=== PATIENT | female | born 1975 | race Caucasian/White ===

== ENCOUNTER → 2016-06-20 | Outpatient (CLI) | payer OTHER | LOC: FIMAGING 15:16 | PROVIDERS: ATTEND Obstetrics & Gynecology | DX: O09.512 Supervision of elderly primigravida, second trimester (principal); Z3A.24 24 weeks gestation of pregnancy; O30.042 Twin pregnancy, dichorionic/diamniotic, second trimester ==

== ENCOUNTER 2016-08-17 09:20 | Inpatient (IN) | payer OTHER ==
[2016-08-17] MEDS ORDERED: LR 1,000 ML IV PRN (10:07)
[2016-08-17] MEDS ORDERED: BETAMETHASONE IM SYRINGE IM ONE (10:13)
[2016-08-17] MEDS ORDERED: NIFEdipine 10 MG CAP PO ONE ×2 (10:16→12:45)
[2016-08-17 11:22] LABS: % IMMATURE GRANULYOCYTES 0.5 % (0.0-1.1); ABSOLUTE IMMATURE GRANULOCYTES 0.03 10^3/uL (0.00-0.10); ADD DIFF? NO; ADD MORPH? NO; ADD SCAN? NO; ATYPICAL LYMPHOCYTE FLAG 10 (0-99); FRAGMENT RBC FLAG 0 (0-99); HEMATOCRIT 39.4 % (38.0-47.0); HEMOGLOBIN 14.4 g/dL (12.6-16.3); LEFT SHIFT FLG 0 (0-99); LIPEMIA HEMOLYSIS FLAG 90 (0-99); MEAN CELL HEMOGLOBIN 35.4 pg (27.9-34.1); MEAN CELL HEMOGLOBIN CONCENTR. 36.5 g/dL (32.4-36.7); MEAN CELL VOLUME 96.8 fL (81.5-99.8); MEAN PLATELET VOLUME 11.2 fL (8.7-11.7); PLATELET CLUMPS FLAG 0 (0-99); PLATELET COUNT 118 10^3/uL (150-400); RED BLOOD CELL COUNT 4.07 10^6/uL (4.18-5.33)
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
[2016-08-17 12:10] LABS: ALANINE AMINOTRANSFERASE 86 IU/L (9-52); ASPARTATE AMINOTRANSFERASE 43 IU/L (14-46); BILIRUBIN-CONJUGATED 0.3 mg/dL (0.0-0.5); BILIRUBIN-UNCONJUGATED 0.7 mg/dL (0.0-1.1); CREATININE 0.8 mg/dL (0.6-1.0); GLOMERULAR FILTRATION RATE > 60; LACTATE DEHYDROGENASE 526 IU/L (313-618); URIC ACID 4.6 mg/dL (2.5-6.8)
--- NOTE | 2016-08-17 14:21 | OBPROG ---
OBG Labor Progress Note Assessment/Plan: Assessment: 41 y/o @ 32 4/7 wks with Di-Di TIUP with ctx's and VB that has now resolved Plan: Pt continued to have ctx's after first dose of 20 mg of Procardia at 100, so another 20 mg was given at 1300 and now just uterine irritability noted Pelvic u/s done showing CL of 1.7cm with no funneling, previously was 2 cm Baby A is breech with EFW of 28% with MVP of 7.2cm Baby B is transverse with EFW 10% with MP of 4.7 cm GBS cx was collected and pending s/p BTMZ x 1 at 1100, repeat in 24 hrs Will cont to observe No Rhogam is needed at this time since FOC is Rh negative (O-) PIH labs: Plt low at 118; AST/ALT 43/86; LDH 526; Uric acid 4.6; BP most recently 128/69-will cont to observe 08/17/16 14:21 Subjective: Pt was feeling ctx's during u/s and now resolved. Good FM x 2. No further VB noted. Objective: 08/17/16 11:05 08/17/16 11:05 Patient ABO/Rh A NEGATIVE 08/17/16 11:05 Uric Acid 4.6 mg/dL (2.5-6.8) 08/17/16 11:05 Total Bilirubin 1.0 mg/dL (0.1-1.4) 08/17/16 11:05 Conjugated Bilirubin 0.3 mg/dL (0.0-0.5) 08/17/16 11:05 Unconjugated Bilirubin 0.7 mg/dL (0.0-1.1) 08/17/16 11:05 AST 43 IU/L (14-46) 08/17/16 11:05 ALT 86 IU/L (9-52) H 08/17/16 11:05 Lactate Dehydrogenase 526 IU/L (313-618) 08/17/16 11:05 Benavidez Current Contraction Pattern: Other (Specify) (uterine irritability) Oxytocin Orders Assessment - Pre-Induction/Augmentation Assessment Gestational Age: 32 week(s) and 4 day(s) ICD10 Worksheet Patient Problems: Problems Problem Status Onset contractions Acute Twin in third trimester Acute Vaginal bleeding in Acute - ICD10 Problem Qualifiers (1) Twin in third trimester Qualifiers: Multiple gestation type: dichorionic and diamniotic Qualified Code(s): O30.043 - Twin , dichorionic/diamniotic, third trimester (2) contractions (3) Vaginal bleeding in Qualifiers: Trimester: T
[2016-08-17] MEDS: NIFEdipine 10 MG CAP PO SCH ×2 (17:15→22:59)
[2016-08-17] MEDS: PRENATAL VIT 1 EACH TAB PO SCH (20:01)
[2016-08-18] MEDS: NIFEdipine 10 MG CAP PO SCH ×5 (05:07→22:57)
[2016-08-18] MEDS: LEVOTHYROXINE 50 MCG TAB PO SCH (05:07)
[2016-08-18 05:32] LABS: % IMMATURE GRANULYOCYTES 0.6 % (0.0-1.1); ABSOLUTE IMMATURE GRANULOCYTES 0.04 10^3/uL (0.00-0.10); ADD DIFF? NO; ADD MORPH? NO; ADD SCAN? NO; ATYPICAL LYMPHOCYTE FLAG 10 (0-99); FRAGMENT RBC FLAG 0 (0-99); HEMOGLOBIN 12.6 g/dL (12.6-16.3); LEFT SHIFT FLG 0 (0-99); LIPEMIA HEMOLYSIS FLAG 90 (0-99); MEAN CELL HEMOGLOBIN 35.6 pg (27.9-34.1); MEAN CELL VOLUME 98.9 fL (81.5-99.8); MEAN PLATELET VOLUME 10.8 fL (8.7-11.7); PLATELET CLUMPS FLAG 0 (0-99); PLATELET COUNT 119 10^3/uL (150-400); RED BLOOD CELL COUNT 3.54 10^6/uL (4.18-5.33); RED CELL DISTRIBUTION WIDTH 13.1 % (11.5-15.2)
[2016-08-18 05:44] LABS: ALANINE AMINOTRANSFERASE 83 IU/L (9-52); ASPARTATE AMINOTRANSFERASE 36 IU/L (14-46); CREATININE 0.7 mg/dL (0.6-1.0); GLOMERULAR FILTRATION RATE > 60; LACTATE DEHYDROGENASE 407 IU/L (313-618); URIC ACID 3.9 mg/dL (2.5-6.8)
[2016-08-18] MEDS ORDERED: NIFEdipine 10 MG CAP PO ONE (08:00)
--- NOTE | 2016-08-18 10:01 | OBPROG ---
OBG Labor Progress Note Assessment/Plan: Assessment: 41 y/o @ 32 5/7 weeks with di/di twins and PTL with EFW 10 % of twin B Plan: Will increase Procardia 20 mg Q 6 hours. Her second dose of BMZ is due at 11: 00 and her cervix is stable since tomorrow. She will see MFM @ 3 pm to assess EFW of baby B and our [facility] plan of care. 08/18/16 10:03 Subjective: Pt is feeling more contractions this am. Mild to moderate in intensity. She is having slightly more brownish discharge. No nausea, vomiting and she is having more movement today. Objective: 08/18/16 05:16 08/18/16 05:16 Patient ABO/Rh A NEGATIVE 08/17/16 11:05 Uric Acid 3.9 mg/dL (2.5-6.8) 08/18/16 05:16 Total Bilirubin 1.0 mg/dL (0.1-1.4) 08/17/16 11:05 Conjugated Bilirubin 0.3 mg/dL (0.0-0.5) 08/17/16 11:05 Unconjugated Bilirubin 0.7 mg/dL (0.0-1.1) 08/17/16 11:05 AST 36 IU/L (14-46) 08/18/16 05:16 ALT 83 IU/L (9-52) H 08/18/16 05:16 Lactate Dehydrogenase 407 IU/L (313-618) 08/18/16 05:16 - SVE Dilation (cm): 1 Effacement (%): 75 Station: -2 Twin A Current Contraction Pattern: Irregular (Q 4-8) FHR (bpm): 125 FHR Pattern Variability: Moderate FHR Category: 1 Membranes: Intact Twin B Current Contraction Pattern: Irregular FHR (bpm): 125 FHR Pattern Variability: Moderate FHR Category: 1 Oxytocin Orders Assessment - Pre-Induction/Augmentation Assessment Gestational Age: 32 week(s) and 4 day(s) ICD10 Worksheet Patient Problems: Problems Problem Status Onset contractions Acute Twin in third trimester Acute Vaginal bleeding in Acute
[2016-08-18] MEDS ORDERED: BETAMETHASONE IM SYRINGE IM ONE (10:12)
[2016-08-18] MEDS: IRON POLYSAC/IRON HEME 28 MG TAB PO SCH (11:12)
[2016-08-18] MEDS: PRENATAL VIT 1 EACH TAB PO SCH (22:57)
[2016-08-19] MEDS: NIFEdipine 10 MG CAP PO SCH ×3 (05:09→20:57)
[2016-08-19 05:35] LABS: ALANINE AMINOTRANSFERASE 89 IU/L (9-52); ASPARTATE AMINOTRANSFERASE 41 IU/L (14-46); BILIRUBIN,TOTAL 0.7 mg/dL (0.1-1.4); BILIRUBIN-CONJUGATED 0.2 mg/dL (0.0-0.5); BILIRUBIN-UNCONJUGATED 0.5 mg/dL (0.0-1.1); CREATININE 0.7 mg/dL (0.6-1.0); GLOMERULAR FILTRATION RATE > 60; LACTATE DEHYDROGENASE 404 IU/L (313-618); URIC ACID 3.9 mg/dL (2.5-6.8)
[2016-08-19 05:37] LABS: % IMMATURE GRANULYOCYTES 1.1 % (0.0-1.1); ABSOLUTE IMMATURE GRANULOCYTES 0.08 10^3/uL (0.00-0.10); ADD DIFF? NO; ADD MORPH? NO; ADD SCAN? NO; ATYPICAL LYMPHOCYTE FLAG 10 (0-99); FRAGMENT RBC FLAG 0 (0-99); HEMATOCRIT 34.1 % (38.0-47.0); HEMOGLOBIN 12.1 g/dL (12.6-16.3); LEFT SHIFT FLG 10 (0-99); LIPEMIA HEMOLYSIS FLAG 90 (0-99); MEAN CELL HEMOGLOBIN 35.3 pg (27.9-34.1); MEAN CELL HEMOGLOBIN CONCENTR. 35.5 g/dL (32.4-36.7); MEAN CELL VOLUME 99.4 fL (81.5-99.8); MEAN PLATELET VOLUME 10.8 fL (8.7-11.7); PLATELET CLUMPS FLAG 0 (0-99); PLATELET COUNT 111 10^3/uL (150-400); RED BLOOD CELL COUNT 3.43 10^6/uL (4.18-5.33); RED CELL DISTRIBUTION WIDTH 12.9 % (11.5-15.2)
[2016-08-19] MEDS: LEVOTHYROXINE 50 MCG TAB PO SCH (07:12)
[2016-08-19] MEDS: IRON POLYSAC/IRON HEME 28 MG TAB PO SCH (12:35)
[2016-08-19] MEDS ORDERED: CALCIUM CARBONATE 500 MG CHEWABLE TAB PO PRN (13:46)
[2016-08-19] MEDS ORDERED: RANITIDINE HCL 150 MG/10 ML UDCUP PO PRN (13:46)
--- NOTE | 2016-08-19 14:00 | OBPROG ---
OBG Labor Progress Note Assessment/Plan: Assessment: IUP at 32w6d ctxns now s/p BMZ x2 and on procardia past 48 hrs - last dose 11 am TWINS - baby B 10% EFW, positions br/tv last cx check /soft borderline B/P with normal labs and 24 hr urine 910 mg, ALT is elevated to 80s - stable GBS - Plan: NSTs q shift, will watch for stability, TUMS for heartburn, Mg for BM recheck growth u/s in 3 wks 08/19/16 14:00 Subjective: Pt doing ok. Anxious about unknown with ctxns. discussed plan of staying off meds and watching uterine activity. GFM x2. is aware of ctxns as tension in abdomen. no BM in 2 days. Objective: 08/19/16 05:15 08/19/16 05:15 Patient ABO/Rh A NEGATIVE 08/17/16 11:05 Uric Acid 3.9 mg/dL (2.5-6.8) 08/19/16 05:15 Total Bilirubin 0.7 mg/dL (0.1-1.4) 08/19/16 05:15 Conjugated Bilirubin 0.2 mg/dL (0.0-0.5) 08/19/16 05:15 Unconjugated Bilirubin 0.5 mg/dL (0.0-1.1) 08/19/16 05:15 AST 41 IU/L (14-46) 08/19/16 05:15 ALT 89 IU/L (9-52) H 08/19/16 05:15 Lactate Dehydrogenase 404 IU/L (313-618) 08/19/16 05:15 Group B Strep DNA NEGATIVE (NEGATIVE) 08/17/16 12:20 Twin A Current Contraction Pattern: Irregular (q 6-8 min mild - possible irritability) FHR (bpm): 130 FHR Pattern Variability: Moderate FHR Category: 1 Membranes: Intact Twin B FHR (bpm): 120 FHR Pattern Variability: Moderate FHR Category: 1 Membranes: Intact Oxytocin Orders Assessment - Pre-Induction/Augmentation Assessment Gestational Age: 32 week(s) and 4 day(s) ICD10 Worksheet Patient Problems: Problems Problem Status Onset contractions Acute Twin in third trimester Acute Vaginal bleeding in Acute
[2016-08-19] MEDS: Magnesium 500 MG PO SCH (21:08)
[2016-08-19] MEDS: PRENATAL VIT 1 EACH TAB PO SCH (21:08)
[2016-08-20] MEDS: Magnesium 500 MG PO SCH (07:17)
[2016-08-20] MEDS: LEVOTHYROXINE 50 MCG TAB PO SCH (07:17)
[2016-08-20] MEDS: NIFEdipine 10 MG CAP PO SCH ×2 (07:18→07:19)
--- NOTE | 2016-08-20 09:38 | OBPROG ---
OBG Labor Progress Note Assessment/Plan: Assessment:cat 1 nst reactive and reassuring denies leaking bleeding and regular contractions brownish discharge remains discussed going home today feeling comfortable Plan:discharge instructions discussed, modified bedrest, leaking bleeding, cramping movement discussed. Fu in the office on monday call first thing for an appt ok with POC 08/20/16 09:35 Subjective: Doing well. Denies bleeding, leaking, and regular contractions. States feeling positive movement of both babies. Objective: 08/19/16 05:15 08/19/16 05:15 Patient ABO/Rh A NEGATIVE 08/17/16 11:05 Uric Acid 3.9 mg/dL (2.5-6.8) 08/19/16 05:15 Total Bilirubin 0.7 mg/dL (0.1-1.4) 08/19/16 05:15 Conjugated Bilirubin 0.2 mg/dL (0.0-0.5) 08/19/16 05:15 Unconjugated Bilirubin 0.5 mg/dL (0.0-1.1) 08/19/16 05:15 AST 41 IU/L (14-46) 08/19/16 05:15 ALT 89 IU/L (9-52) H 08/19/16 05:15 Lactate Dehydrogenase 404 IU/L (313-618) 08/19/16 05:15 Group B Strep DNA NEGATIVE (NEGATIVE) 08/17/16 12:20 - Physical Exam General Appearance: WD/WN, alert, no apparent distress Respiratory: chest non-tender, lungs clear, normal breath sounds Cardiac/Chest: regular rate, rhythm Abdomen: normal bowel sounds Extremities: normal range of motion, Juliana's sign (negative bilaterally) DTR- Lower Extremities: Knee (R): 1+, Knee (L): 1+ (no clonus) Skin: normal color, warm/dry Neuro/Psych: no motor/sensory deficits, alert, normal mood/affect, oriented x 3 Oxytocin Orders Assessment - Pre-Induction/Augmentation Assessment Gestational Age: 32 week(s) and 4 day(s) ICD10 Worksheet Patient Problems: Problems Problem Status Onset contractions Acute Twin in third trimester Acute Vaginal bleeding in Acute
[2016-08-20] MEDS: IRON POLYSAC/IRON HEME 28 MG TAB PO SCH (10:19)
== END 2016-08-20 10:25 | disposition home or self-care (01) | DRG 778 ==
LOC: FLD 09:20 → OBSVTOIN 10:07
PROVIDERS: ADMIT Obstetrics & Gynecology; ATTEND Obstetrics & Gynecology
DX: O60.03 Preterm labor without delivery, third trimester (principal); Z3A.32 32 weeks gestation of pregnancy; O30.043 Twin pregnancy, dichorionic/diamniotic, third trimester; O99.283 Endocrine, nutritional and metabolic diseases complicating pregnancy, third trimester; E03.9 Hypothyroidism, unspecified; O99.013 Anemia complicating pregnancy, third trimester; D64.9 Anemia, unspecified
CPT/HCPCS: J0702

== ENCOUNTER 2016-08-22 14:52 | Inpatient (IN) | payer OTHER ==
[2016-08-22 16:01] LABS: % IMMATURE GRANULYOCYTES 0.5 % (0.0-1.1); ABSOLUTE IMMATURE GRANULOCYTES 0.04 10^3/uL (0.00-0.10); ADD DIFF? NO; ADD MORPH? NO; ADD SCAN? NO; ATYPICAL LYMPHOCYTE FLAG 10 (0-99); FRAGMENT RBC FLAG 0 (0-99); HEMATOCRIT 36.4 % (38.0-47.0); LEFT SHIFT FLG 0 (0-99); LIPEMIA HEMOLYSIS FLAG 90 (0-99); MEAN CELL HEMOGLOBIN CONCENTR. 35.7 g/dL (32.4-36.7); MEAN CELL VOLUME 98.1 fL (81.5-99.8); MEAN PLATELET VOLUME 11.2 fL (8.7-11.7); PLATELET CLUMPS FLAG 0 (0-99); PLATELET COUNT 136 10^3/uL (150-400); RED BLOOD CELL COUNT 3.71 10^6/uL (4.18-5.33)
[2016-08-22 16:14] LABS: ALANINE AMINOTRANSFERASE 142 IU/L (9-52); ASPARTATE AMINOTRANSFERASE 63 IU/L (14-46); BILIRUBIN,TOTAL 0.7 mg/dL (0.1-1.4); BILIRUBIN-CONJUGATED 0.3 mg/dL (0.0-0.5); BILIRUBIN-UNCONJUGATED 0.4 mg/dL (0.0-1.1); CREATININE 0.7 mg/dL (0.6-1.0); GLOMERULAR FILTRATION RATE > 60; LACTATE DEHYDROGENASE 539 IU/L (313-618)
[2016-08-22] MEDS ORDERED: LR 1,000 ML IV SCH (20:00)
--- NOTE | 2016-08-22 20:35 | GHP ---
[f rep st] PREOP HISTORY AND PHYSICAL DATE OF ADMISSION: 08/22/2016 ADMITTING DIAGNOSIS: Intrauterine at 33-2/7 weeks gestation with diamniotic dichorionic t win gestation and preeclampsia. HISTORY OF PRESENT ILLNESS: The patient is a 41-year-old 1, para 0 with a last menstrual pe riod of 01/04/2016 and an EDC of 10/08/2016, who has a diamniotic dichorionic twin gestation. She h as had good care at [facility], [place] since registration at 10 weeks. Her has been complicated by several factors. 1. Advanced maternal age greater than 40. She has had normal genetic testing and all ultrasounds h ave been normal for anatomy. 2. Diamniotic dichorionic twins with by IUI. Her most recent ultrasound on 08/17/2016 re vealed growth restriction in twin B. Baby A was breech presentation. Estimated weight 1913 g , which is 28th percentile. Had a normal amniotic fluid volume. Maximal fluid pocket of 7.2. Baby B was transverse lie, estimated weight 1729 g, 10th percentile, with a maximal fluid pocket o f 4.7 for baby B. They did have concordant growth, but baby B had decreased growth to the 10th perc entile. 3. Hypothyroidism. She has been well controlled on meds. 4. Rh negative, status post RhoGAM. Father of the babies is also Rh negative. She did not receive RhoGAM at 28 weeks. 5. History of migraines. 6. History of fibromyalgia. 7. History of a seizure disorder. She has petite mal seizures, most recently at 29 weeks' gestatio n. She says she has them approximately 1 time a month and they are brought on by extreme stress or visual or auditory disturbances. 8. She is anemic and on iron. She was admitted from 08/17/2016 to 08/19/2016 with the diagnosis of vaginal bleeding and la bor. She was assessed at that time, received a full course of betamethasone, and she was on Procard ia to control her contractions and give her a betamethasone window. When she completed this, Procar arturo was discontinued. Her contractions were stable. She had no more evidence of active bleeding or labor, and she was discharged home. During that admission, she had elevated blood pressure s. Initially on admission, her blood pressure was 149/87. After she was stabilized and was resting and on p.o. Procardia, her blood pressures normalized to 120s over 70s. She had labs done during [facility] admission several times with some areas of abnormalities. Initially, her platelets were 118. T hey drifted to 111. Creatinine was 0.8 and 0.7. Uric acid was 4.6 and 3.9. AST was 43 and ALT was elevated at 86. LDH was 526. She had 2 more sets drawn during that admission to make sure that th ings were stable. The most abnormality was the ALT progressed to 89. She had a 24-hour urine prote in that was collected during that admission and her total protein was abnormal at 910 mg. Due to he r elevated blood pressures, 24-hour urine and abnormal lab values, the patient was felt to have the diagnosis of preeclampsia. However, she did not have severe features. The patient was discharged h [facility] for outpatient management and careful monitoring. This morning on 08/22/2016, she presented to the office for evaluation, and she had another abnormal blood pressure of 150/83. She reports episo [place] of headaches this weekend which were transient in nature. Some she described as severe. She to ok Tylenol and rested, and they improved. She had episodes of scotomata which were waxing and wanin g, occasionally not severe. She does describe some episodes of right upper quadrant pain. However, it improves with position changes and she is not sure if it is related to the positioning. S he did have increased contractions over the weekend and still has some brown discharge but no active bleeding. PAST OBSTETRICAL HISTORY: None, she is a primipara. PAST GYNECOLOGIC HISTORY: She has normal menstrual cycles, regular, every 28 days x3-4 days. Last menstrual period was 01/04/2016. Conceived through intrauterine insemination. She has no history o f abnormal Pap smears or STDs. PAST MEDICAL HISTORY: Hypothyroidism, migraines with aura, fibromyalgia, depression, IBS, seizure d isorder, PNES, nonepileptic seizures. PAST SURGICAL HISTORY: She had a hymenectomy, a polypectomy in September 2015, and a history of endome trial polyps. She also had LASIK surgery. MEDICATIONS: Include vitamins with DHA and Synthroid 50 mcg q. day. ALLERGIES: She is allergic to Lyrica, unknown reaction. LABORATORIES: She is A negative, antibody negative. RPR nonreactive. Rubella immune. He patitis negative. HIV negative. Cystic fibrosis, SMA, fragile X negative. TSH 1.4 most recently. Pap normal. Gonorrhea and chlamydia normal. 1-hour GTT 109. Verifi was normal. AFP was normal. GBS was negative. SOCIAL HISTORY: She is . She lives with her . She is disabled and does not work per manently. Denies tobacco, alcohol or drug use. FAMILY HISTORY: Paternal grandmother has heart disease. Father had COPD. Paternal grandmother has diabetes. Father has psoriasis and alcoholism. That is all. REVIEW OF SYSTEMS: Significant for transient headaches, transient scotomata and abdominal epigastri c pain. She has contractions and some brown spotting. She has good movement. All other 10-p oint review of systems is negative. EXAMINATION: VITAL SIGNS: Today, her blood pressures have improved with rest, ranging 129/79, 139/ 79, 133/80. GENERAL: She is a well-developed, gravid white female in no acute distress. LUNGS: C lear to auscultation bilaterally. HEART: Regular rate and rhythm. No murmurs. ABDOMEN: Gravid, nontender. Negative Hudson sign. No edema. DTRs are 2+ over 2+. PELVIC: Cervical exam was defer red. LABORATORY DATA: Most recent labs: White blood cell count 7.5, hemoglobin 13, hematocrit 36.4, zohreh telets 136. BUN 10, creatinine 0.7, uric acid is 4. AST increased to 63, ALT increased to 142. LD H is 539. NSTs: heart tones: Baby A is 140s, reactive, moderate variability, category 1. B any B 130s, reactive, moderate variability, category 1. She is benitez irregularly. ASSESSMENT/PLAN: A 41-year-old 1, para 0 with diamniotic dichorionic twin gestation and pre eclampsia with severe features at 33-2/7 weeks' gestation. I had a phone consultation with Dr. Irena Faulkner, Maternal- Medicine, and reviewed the patient's clinical course, labs and vital signs, and we are in agreement that she has preeclampsia with sever e features. However, at 33-2/7 weeks' gestation, we want to see a trend before we proceed to delive ry. She recommended repeat labs at 10 p.m. tonight. If they are significantly worsened, proceed wi th delivery tonight, so she will be n.p.o. as of now. If they are stable, repeat labs again at 6 a. m. tomorrow. If they are abnormal, proceed with delivery tomorrow morning. If they remain stable, we will keep her as an inpatient with daily labs until delivery at the latest at 34 weeks, which is this coming Monday. If patient develops any more severe features or specific lab abnormalities, s pecific thrombocytopenia, we will proceed with delivery immediately. The patient has been counseled on delivery options, and because of the variable position of her twins as well as concerns for stre ss in labor, patient opts to have a and she desires this for delivery. /[id number]/MODL
[2016-08-22 22:20] LABS: % IMMATURE GRANULYOCYTES 0.5 % (0.0-1.1); ABSOLUTE IMMATURE GRANULOCYTES 0.04 10^3/uL (0.00-0.10); ADD DIFF? NO; ADD MORPH? NO; ADD SCAN? NO; ATYPICAL LYMPHOCYTE FLAG 30 (0-99); FRAGMENT RBC FLAG 0 (0-99); HEMATOCRIT 35.4 % (38.0-47.0); HEMOGLOBIN 13.1 g/dL (12.6-16.3); LEFT SHIFT FLG 10 (0-99); LIPEMIA HEMOLYSIS FLAG 90 (0-99); MEAN CELL VOLUME 97.3 fL (81.5-99.8); MEAN PLATELET VOLUME 11.1 fL (8.7-11.7); PLATELET CLUMPS FLAG 20 (0-99); PLATELET COUNT 132 10^3/uL (150-400); RED BLOOD CELL COUNT 3.64 10^6/uL (4.18-5.33)
[2016-08-22 22:44] LABS: ALANINE AMINOTRANSFERASE 147 IU/L (9-52); ASPARTATE AMINOTRANSFERASE 63 IU/L (14-46); CREATININE 0.7 mg/dL (0.6-1.0); GLOMERULAR FILTRATION RATE > 60; LACTATE DEHYDROGENASE 481 IU/L (313-618); URIC ACID 4.2 mg/dL (2.5-6.8)
[2016-08-22] MEDS ORDERED: ZOLPIDEM TARTRATE 5 MG TAB PO PRN (23:03)
--- NOTE | 2016-08-22 23:07 | OBPROG ---
OBG Labor Progress Note Assessment/Plan: Assessment:PLts 136 to 132 alt 142 to 147 npo after midnight repeat pih labs 0600 nst reactive denies pain ambien for sleep if desires dr casas and dr morales aware of results Plan:repeat pih labs in the am 08/22/16 23:05 Subjective: Doing ok verbalized understanding of the plan. Ok to have food and drink now NPO repeated after midnight Objective: 08/22/16 22:01 08/22/16 22:01 Patient ABO/Rh A NEGATIVE 08/22/16 19:20 Uric Acid 4.2 mg/dL (2.5-6.8) 08/22/16 22:01 Total Bilirubin 0.7 mg/dL (0.1-1.4) 08/22/16 15:46 Conjugated Bilirubin 0.3 mg/dL (0.0-0.5) 08/22/16 15:46 Unconjugated Bilirubin 0.4 mg/dL (0.0-1.1) 08/22/16 15:46 AST 63 IU/L (14-46) H 08/22/16 22:01 ALT 147 IU/L (9-52) H 08/22/16 22:01 Lactate Dehydrogenase 481 IU/L (313-618) 08/22/16 22:01 Oxytocin Orders Assessment - Pre-Induction/Augmentation Assessment Gestational Age: 33 week(s) and 2 day(s) ICD10 Worksheet Patient Problems: Problems Problem Status Onset Twin in third trimester Acute
--- NOTE | 2016-08-22 23:16 | OBPROG ---
OBG Labor Progress Note Assessment/Plan: Assessment: IUP @ 33 2/7 weeks - twins preeclampisa - stable labs status reassuring. Plan: patient may eat then npo repeat PIH labs at 6 am 08/22/16 23:11 Subjective: patient is doing well. good movement. denies headache and changes in vision. PIH labs are stable. long discussion with management plan with patient and her . will repeat labs at 6 am. Objective: 08/22/16 22:01 08/22/16 22:01 Patient ABO/Rh A NEGATIVE 08/22/16 19:20 Uric Acid 4.2 mg/dL (2.5-6.8) 08/22/16 22:01 Total Bilirubin 0.7 mg/dL (0.1-1.4) 08/22/16 15:46 Conjugated Bilirubin 0.3 mg/dL (0.0-0.5) 08/22/16 15:46 Unconjugated Bilirubin 0.4 mg/dL (0.0-1.1) 08/22/16 15:46 AST 63 IU/L (14-46) H 08/22/16 22:01 ALT 147 IU/L (9-52) H 08/22/16 22:01 Lactate Dehydrogenase 481 IU/L (313-618) 08/22/16 22:01 Oxytocin Orders Assessment - Pre-Induction/Augmentation Assessment Gestational Age: 33 week(s) and 2 day(s) ICD10 Worksheet Patient Problems: Problems Problem Status Onset Twin in third trimester Acute
[2016-08-23 05:55] LABS: % IMMATURE GRANULYOCYTES 0.4 % (0.0-1.1); ABSOLUTE IMMATURE GRANULOCYTES 0.03 10^3/uL (0.00-0.10); ADD DIFF? NO; ADD MORPH? NO; ADD SCAN? NO; ATYPICAL LYMPHOCYTE FLAG 10 (0-99); FRAGMENT RBC FLAG 0 (0-99); HEMATOCRIT 34.7 % (38.0-47.0); HEMOGLOBIN 12.4 g/dL (12.6-16.3); LEFT SHIFT FLG 0 (0-99); LIPEMIA HEMOLYSIS FLAG 90 (0-99); MEAN CELL HEMOGLOBIN CONCENTR. 35.7 g/dL (32.4-36.7); MEAN PLATELET VOLUME 11.2 fL (8.7-11.7); PLATELET CLUMPS FLAG 0 (0-99); PLATELET COUNT 123 10^3/uL (150-400); RED BLOOD CELL COUNT 3.54 10^6/uL (4.18-5.33); RED CELL DISTRIBUTION WIDTH 13.1 % (11.5-15.2)
[2016-08-23 06:10] LABS: ALANINE AMINOTRANSFERASE 134 IU/L (9-52); ASPARTATE AMINOTRANSFERASE 58 IU/L (14-46); CREATININE 0.7 mg/dL (0.6-1.0); GLOMERULAR FILTRATION RATE > 60; LACTATE DEHYDROGENASE 416 IU/L (313-618); URIC ACID 4.1 mg/dL (2.5-6.8)
--- NOTE | 2016-08-23 06:33 | OBPROG ---
OBG Labor Progress Note Assessment/Plan: Assessment:PLts 136 to 132 to 123 alt 142 to 147 to 134 ast 41to 64-58 regular diet this morning repeat pih labs qd nst reactive denies pain ambien for sleep if desires dr casas made aware of Plan:discussed labs with dr casas expectant management 08/22/16 23:05 08/23/16 06:31 Subjective: rested well through the night. Objective: 08/23/16 05:40 08/23/16 05:40 Patient ABO/Rh A NEGATIVE 08/22/16 19:20 Uric Acid 4.1 mg/dL (2.5-6.8) 08/23/16 05:40 Total Bilirubin 0.7 mg/dL (0.1-1.4) 08/22/16 15:46 Conjugated Bilirubin 0.3 mg/dL (0.0-0.5) 08/22/16 15:46 Unconjugated Bilirubin 0.4 mg/dL (0.0-1.1) 08/22/16 15:46 AST 58 IU/L (14-46) H 08/23/16 05:40 ALT 134 IU/L (9-52) H 08/23/16 05:40 Lactate Dehydrogenase 416 IU/L (313-618) 08/23/16 05:40 Oxytocin Orders Assessment - Pre-Induction/Augmentation Assessment Gestational Age: 33 week(s) and 2 day(s) ICD10 Worksheet Patient Problems: Problems Problem Status Onset Twin in third trimester Acute
--- NOTE | 2016-08-23 09:34 | OBPROG ---
OBG Labor Progress Note Assessment/Plan: Assessment: 41 y/o @ 33 3/7 weeks with di/di twins and pre-eclampsia with severe features. Plan: Discussed plan again with Dr Araujo today. She has the criteria for the diagnosis of pre-eclampsia with severe features, because of 2 elevated BP, proteinuria and elevated LFT's 2 x normal, as well as growth of twin B = 10 %. However, for now she is clinically stable. We discussed timing of delivery due to all of these factors and we agree that 34 weeks is reasonable. However, she should be monitored closely as an inpatient, with daily PIH labs, serial BP and NST's and if any of these factors worsen dramatically, we should proceed with immediately. She will come to see the patient later today. I explained this plan to the patient and her and answered all questions. 08/23/16 09:45 Subjective: Pt is feeling well this am. She is tired but overall rested overnight. She denies WHITTINGTON, scotomata or RUQ pain. She has had irregular contractions, occasionally strong. Good FM, no longer vaginal bleeding. Objective: 08/23/16 05:40 08/23/16 05:40 Patient ABO/Rh A NEGATIVE 08/22/16 19:20 Uric Acid 4.1 mg/dL (2.5-6.8) 08/23/16 05:40 Total Bilirubin 0.7 mg/dL (0.1-1.4) 08/22/16 15:46 Conjugated Bilirubin 0.3 mg/dL (0.0-0.5) 08/22/16 15:46 Unconjugated Bilirubin 0.4 mg/dL (0.0-1.1) 08/22/16 15:46 AST 58 IU/L (14-46) H 08/23/16 05:40 ALT 134 IU/L (9-52) H 08/23/16 05:40 Lactate Dehydrogenase 416 IU/L (313-618) 08/23/16 05:40 BP stable last night 123/81, 129/83, 129/78, - SVE Dilation (cm): 1 Effacement (%): 80 Twin A Current Contraction Pattern: Irregular FHR (bpm): 130 FHR Pattern Variability: Moderate FHR Category: 1 Membranes: Intact Twin B FHR (bpm): 120 FHR Pattern Variability: Moderate FHR Category: 1 - Physical Exam General Appearance: WD/WN, alert, no apparent distress Neck: non-tender, full range of motion, supple Respiratory: chest non-tender, lungs clear, normal breath sounds Cardiac/Chest: regular rate, rhythm Abdomen: normal bowel sounds, other (gravid, NT, neg Hudson's sign) Extremities: swelling (no), Juliana's sign (neg) DTR- Lower Extremities: Knee (R): 2+, Knee (L): 2+, Ankle (R): 2+, Ankle (L): 2 + (no clonus) Oxytocin Orders Assessment - Pre-Induction/Augmentation Assessment Gestational Age: 33 week(s) and 2 day(s) ICD10 Worksheet Patient Problems: Problems Problem Status Onset Twin in third trimester Acute
[2016-08-23] MEDS: DOCUSATE SODIUM 100 MG CAP PO SCH ×2 (17:18→21:36)
[2016-08-23] MEDS: PRENATAL VIT 1 EACH TAB PO SCH (22:01)
[2016-08-24 06:19] LABS: ALANINE AMINOTRANSFERASE 130 IU/L (9-52); ASPARTATE AMINOTRANSFERASE 51 IU/L (14-46); BILIRUBIN,TOTAL 0.6 mg/dL (0.1-1.4); BILIRUBIN-CONJUGATED 0.2 mg/dL (0.0-0.5); BILIRUBIN-UNCONJUGATED 0.4 mg/dL (0.0-1.1); CREATININE 0.7 mg/dL (0.6-1.0); GLOMERULAR FILTRATION RATE > 60; LACTATE DEHYDROGENASE 410 IU/L (313-618); URIC ACID 3.8 mg/dL (2.5-6.8)
[2016-08-24 06:50] LABS: % IMMATURE GRANULYOCYTES 0.6 % (0.0-1.1); ABSOLUTE IMMATURE GRANULOCYTES 0.04 10^3/uL (0.00-0.10); ADD DIFF? NO; ADD MORPH? NO; ADD SCAN? NO; ATYPICAL LYMPHOCYTE FLAG 0 (0-99); FRAGMENT RBC FLAG 0 (0-99); HEMATOCRIT 35.1 % (38.0-47.0); HEMOGLOBIN 12.5 g/dL (12.6-16.3); LEFT SHIFT FLG 0 (0-99); LIPEMIA HEMOLYSIS FLAG 90 (0-99); MEAN CELL HEMOGLOBIN 35.2 pg (27.9-34.1); MEAN CELL HEMOGLOBIN CONCENTR. 35.6 g/dL (32.4-36.7); MEAN CELL VOLUME 98.9 fL (81.5-99.8); MEAN PLATELET VOLUME 10.9 fL (8.7-11.7); PLATELET CLUMPS FLAG 10 (0-99); PLATELET COUNT 116 10^3/uL (150-400); RED BLOOD CELL COUNT 3.55 10^6/uL (4.18-5.33)
[2016-08-24] MEDS: LEVOTHYROXINE 50 MCG TAB PO SCH (07:13)
[2016-08-24] MEDS: MAGNESIUM 500 MG PO SCH ×2 (07:13→21:14)
[2016-08-24] MEDS: DOCUSATE SODIUM 100 MG CAP PO SCH ×2 (09:35→21:15)
[2016-08-24] MEDS: FERROUS SULFATE 325 MG TAB PO SCH (09:35)
--- NOTE | 2016-08-24 13:08 | OBPROG ---
OBG Labor Progress Note Assessment/Plan: Assessment: IUP at 33w4d, twins, preeclampsia stable with improving labs except slight trend down of plts B/P normal Reactive twin monitoring s/p BMZ x2 Plan: routine monitoring with q shift NSTs and daily labs plan for C/S Saturday 08/2608/24/16 13:05 Subjective: Doing fine. GFM x2. no ctxns bothersome. No WHITTINGTON or N/V or RUQ pain. No swelling increasing. disc stable labs and slight trend of platelets. Objective: 08/24/16 05:58 08/23/16 05:58 Patient ABO/Rh A NEGATIVE 08/22/16 19:20 Uric Acid 3.8 mg/dL (2.5-6.8) 08/23/16 05:58 Total Bilirubin 0.6 mg/dL (0.1-1.4) 08/23/16 05:58 Conjugated Bilirubin 0.2 mg/dL (0.0-0.5) 08/23/16 05:58 Unconjugated Bilirubin 0.4 mg/dL (0.0-1.1) 08/23/16 05:58 AST 51 IU/L (14-46) H 08/23/16 05:58 ALT 130 IU/L (9-52) H 08/23/16 05:58 Lactate Dehydrogenase 410 IU/L (313-618) 08/23/16 05:58 Twin A Current Contraction Pattern: Other (Specify) (infreq) FHR (bpm): 140 FHR Pattern Variability: Moderate FHR Category: 1 Membranes: Intact Twin B FHR (bpm): 130 FHR Pattern Variability: Moderate FHR Category: 1 Membranes: Intact Oxytocin Orders Assessment - Pre-Induction/Augmentation Assessment Gestational Age: 33 week(s) and 2 day(s) ICD10 Worksheet Patient Problems: Problems Problem Status Onset Twin in third trimester Acute
[2016-08-24] MEDS: PRENATAL VIT 1 EACH TAB PO SCH (21:15)
[2016-08-25] MEDS: LEVOTHYROXINE 50 MCG TAB PO SCH (06:22)
[2016-08-25] MEDS: MAGNESIUM 500 MG PO SCH ×2 (06:23→20:22)
[2016-08-25 07:20] LABS: ALANINE AMINOTRANSFERASE 143 IU/L (9-52); ASPARTATE AMINOTRANSFERASE 55 IU/L (14-46); CREATININE 0.7 mg/dL (0.6-1.0); GLOMERULAR FILTRATION RATE > 60; URIC ACID 3.8 mg/dL (2.5-6.8)
[2016-08-25 07:28] LABS: % IMMATURE GRANULYOCYTES 0.4 % (0.0-1.1); ABSOLUTE IMMATURE GRANULOCYTES 0.03 10^3/uL (0.00-0.10); ADD DIFF? NO; ADD MORPH? NO; ADD SCAN? NO; ATYPICAL LYMPHOCYTE FLAG 0 (0-99); FRAGMENT RBC FLAG 0 (0-99); HEMOGLOBIN 12.6 g/dL (12.6-16.3); LEFT SHIFT FLG 0 (0-99); LIPEMIA HEMOLYSIS FLAG 90 (0-99); MEAN CELL HEMOGLOBIN 35.4 pg (27.9-34.1); MEAN CELL VOLUME 98.3 fL (81.5-99.8); MEAN PLATELET VOLUME 11.2 fL (8.7-11.7); PLATELET CLUMPS FLAG 0 (0-99); PLATELET COUNT 118 10^3/uL (150-400); RED BLOOD CELL COUNT 3.56 10^6/uL (4.18-5.33)
[2016-08-25] MEDS: DOCUSATE SODIUM 100 MG CAP PO SCH ×2 (09:10→20:21)
[2016-08-25] MEDS: FERROUS SULFATE 325 MG TAB PO SCH (09:10)
[2016-08-25] MEDS: PRENATAL VIT 1 EACH TAB PO SCH (20:21)
--- NOTE | 2016-08-25 21:07 | OBPROG ---
OBG Labor Progress Note Assessment/Plan: Assessment: IUP @ 33 5/7 weeks - twins preeclampisa - stable labs status reassuring. Plan: PLTCS in am 08/25/16 21:04 Subjective: patient is doing well overall. good movement. denies headache and changes in vision. denies loss of fluid or changes in vision. denies contractions. labs and blood pressures are stable. will sign consent for surgery in the am. Objective: 08/25/16 06:38 08/25/16 06:38 Patient ABO/Rh A NEGATIVE 08/25/16 18:20 Uric Acid 3.8 mg/dL (2.5-6.8) 08/25/16 06:38 Total Bilirubin 0.6 mg/dL (0.1-1.4) 08/23/16 05:58 Conjugated Bilirubin 0.2 mg/dL (0.0-0.5) 08/23/16 05:58 Unconjugated Bilirubin 0.4 mg/dL (0.0-1.1) 08/23/16 05:58 AST 55 IU/L (14-46) H 08/25/16 06:38 ALT 143 IU/L (9-52) H 08/25/16 06:38 Lactate Dehydrogenase 410 IU/L (313-618) 08/23/16 05:58 - Physical Exam General Appearance: WD/WN, alert, no apparent distress Neck: non-tender, full range of motion Respiratory: chest non-tender, lungs clear, normal breath sounds Cardiac/Chest: normal peripheral pulses, regular rate, rhythm Abdomen: normal bowel sounds, other (gravid) Skin: normal color, warm/dry Neuro/Psych: no motor/sensory deficits, alert, normal mood/affect, oriented x 3 Oxytocin Orders Assessment - Pre-Induction/Augmentation Assessment Gestational Age: 33 week(s) and 2 day(s) ICD10 Worksheet Patient Problems: Problems Problem Status Onset Twin in third trimester Acute
[2016-08-26] MEDS ORDERED: OLIVE OIL 118 ML BTL ONE (02:09)
[2016-08-26] MEDS ORDERED: LIDOCAINE 1% 300 MG/30 ML SDV ONE (02:09)
[2016-08-26] MEDS ORDERED: OXYTOCIN 10 UNIT/ML VIAL ONE (02:10)
[2016-08-26] MEDS ORDERED: AMMONIA AROMATIC 1 EACH AMP IH ONE (02:10)
[2016-08-26] MEDS ORDERED: TERBUTALINE SULFATE 1 MG/ML VIAL ONE (02:10)
[2016-08-26] MEDS ORDERED: MISOPROSTOL 200 MCG TAB ONE (02:10)
[2016-08-26] MEDS ORDERED: CITRIC ACID/SODIUM CITRATE 30 ML UDCUP PO ONE (03:41)
[2016-08-26] MEDS ORDERED: ceFAZolin 2 GM/DEXTROSE 100 ML IV ONE ×2 (03:41→07:00)
[2016-08-26] MEDS ORDERED: LR 500 ML IV ONE (03:41)
[2016-08-26] MEDS ORDERED: LR 1,000 ML IV SCH (04:00)
[2016-08-26] MEDS: LEVOTHYROXINE 50 MCG TAB PO SCH (05:50)
--- NOTE | 2016-08-26 08:49 | PREANESOB ---
Obstetric Pre-Anesthesia Info - General Info Proposed Procedure: C Section. : 1 Para: 0 WBD: 33 - Info Status: Premature Monitors: External FHR Baseline (bpm): 150 FHR Pattern: Reassuring - Labor Status Cervical Dilation per last OB SVE: 1 Section History: Primary Indications for Current Section: Breech (Twins, baby A breech.) Anesthesia ROS: General anesthesia x 2. Hypothyroid. Allergies/Adverse Reactions: Allergy/AdvReac Type Severity Reaction Status Date / Time No Known Allergies Allergy Unverified 08/22/16 15:20 Home Medications: Medication Instructions Recorded IRON 65 mg PO DAILY 08/17/16 1 tab PO HS 08/17/16 Levothyroxine [Synthroid 50 mcg 50 mcg PO DAILY AT 6AM #0 tab 08/20/16 (*)] Visit Medications: Generic Name Dose Route Start Last Admin Trade Name Freq PRN Reason Stop Dose Admin Docusate Sodium 100 mg 08/23/16 09:00 08/25/16 20:21 Colace PO 02/19/17 08:59 100 mg BID GUSTAVO Administration Ferrous Sulfate 325 mg 08/24/16 09:00 08/25/16 09:10 Ferrous Sulfate PO 02/20/17 08:59 325 mg DAILY GUSTAVO Administration Lactated Ringer's 1,000 mls @ 125 mls/hr 08/22/16 20:00 08/26/16 06:01 Lr IV 02/18/17 19:59 1,000 mls CONT GUSTAVO Administration Lactated Ringer's 1,000 mls @ 125 mls/hr 08/26/16 04:00 Lr IV 02/22/17 03:59 CONT GUSTAVO Levothyroxine Sodium 50 mcg 08/24/16 06:00 08/26/16 05:50 Synthroid PO 02/20/17 05:59 50 mcg DAILY06 GUSTAVO Administration Miscellaneous Medication 0 ea 08/23/16 22:00 08/25/16 20:22 Non-Formulary PO 02/19/17 21:59 Not Given BID GUSTAVO Prenat Multivit/Costilla/Iron/Folic Ac 1 each 08/23/16 22:00 08/25/16 20:21 PO 02/19/17 21:59 1 each HS GUSTAVO Administration Zolpidem Tartrate 10 mg 08/22/16 23:03 Ambien PO 02/18/17 23:02 HS PRN Sleep/Insomnia Discontinued Medications Generic Name Dose Route Start Last Admin Trade Name Fernando PRN Reason Stop Dose Admin Ammonia (Aromatic Spirit) Confirm 08/26/16 02:10 Ammonia Aromatic Administered 08/26/16 02:11 Dose 1 each IH .STK-MED ONE Citric Acid/Sodium Citrate 30 ml 08/26/16 03:41 Bicitra PO 08/26/16 03:42 ONCALL ONE Ephedrine Sulfate Confirm 08/26/16 02:10 Ephedrine Sulfate Administered 08/26/16 02:11 Dose 50 mg .ROUTE .STK-MED ONE Cefazolin Sodium/Dextrose 100 mls @ 200 mls/hr 08/26/16 03:41 08/26/16 07:30 Ancef 2 Gm (Premix) IV 08/26/16 04:10 100 mls ONCALL ONE Administration Protocol Lactated Ringer's 500 mls @ 0 mls/hr 08/26/16 03:41 Lr IV 08/26/16 03:42 ONCE ONE As Directed Cefazolin Sodium/Dextrose 100 mls @ 200 mls/hr 08/26/16 07:00 Ancef 2 Gm (Premix) IV 08/26/16 07:29 ONCALL ONE Protocol Lidocaine HCl Confirm 08/26/16 02:09 Lidocaine Hcl 1% Administered 08/26/16 02:10 Dose 300 mg .ROUTE .STK-MED ONE Misoprostol Confirm 08/26/16 02:10 Cytotec Administered 08/26/16 02:11 Dose 1,000 mcg .ROUTE .STK-MED ONE [place] Oil Confirm 08/26/16 02:09 Sweet Oil Administered 08/26/16 02:10 Dose 118 ml .ROUTE .STK-MED ONE Oxytocin Confirm 08/26/16 02:10 Pitocin Administered 08/26/16 02:11 Dose 40 unit .ROUTE .STK-MED ONE Terbutaline Sulfate Confirm 08/26/16 02:10 Brethine Administered 08/26/16 02:11 Dose 1 mg .ROUTE .STK-MED ONE - Anesthesia History Response to Local Anesthetics: Normal Anesthesia & Operative History: No Prior Problems Family Anesthesia History: Negative - Social History Substance Use/Abuse: Denies - Focused Exam Blood Pressure: 127/82 Heart Rate: 83 Height/Weight (Nursing): Height 165.1 cm Weight 92.986 kg Physical Exam: Within normal limits. ASA Status: II Labs: 08/25/16 06:38 08/25/16 06:38 Patient ABO/Rh A NEGATIVE 08/25/16 18:20 Uric Acid 3.8 mg/dL (2.5-6.8) 08/25/16 06:38 Total Bilirubin 0.6 mg/dL (0.1-1.4) 08/23/16 05:58 Conjugated Bilirubin 0.2 mg/dL (0.0-0.5) 08/23/16 05:58 Unconjugated Bilirubin 0.4 mg/dL (0.0-1.1) 08/23/16 05:58 AST 55 IU/L (14-46) H 08/25/16 06:38 ALT 143 IU/L (9-52) H 08/25/16 06:38 Lactate Dehydrogenase 410 IU/L (313-618) 08/23/16 05:58 - Plan Anesthetic Plan: SAB Consent Signed and on Chart: Yes Patient/Guardian Understands and Agrees to Plan: Yes
[2016-08-26] MEDS ORDERED: morphINE PF 10 MG/10 ML INJ ONE (12:07)
[2016-08-26] MEDS ORDERED: fentaNYL 100 MCG/2 ML INJ ONE (12:07)
[2016-08-26] MEDS ORDERED: DEXAMETHASONE 4 MG/ML VIAL ONE ×2 (12:36→12:37)
[2016-08-26] MEDS ORDERED: OXYTOCIN 100 UNITS/10 ML VIAL ONE (12:37)
[2016-08-26] MEDS ORDERED: ONDANSETRON 4 MG/2 ML VIAL ONE ×2 (12:37)
[2016-08-26] MEDS ORDERED: PHENYLEPHRINE HCL 100 MCG/ML SYR ONE (12:37)
[2016-08-26] MEDS ORDERED: NALOXONE HCL 0.4 MG/ML INJ IVP PRN (13:29)
[2016-08-26] MEDS ORDERED: ONDANSETRON 4 MG/2 ML VIAL IVP PRN (13:29)
[2016-08-26] MEDS ORDERED: PHENYLEPHRINE HCL 100 MCG/ML SYR IVP PRN (13:29)
--- NOTE | 2016-08-26 13:29 | POSTANESTH ---
Post Anesthetic Evaluation Cardiovascular Status: Normal, Stable Respiratory Status: Normal, Stable, Similar to Pre-op Cond. Level of Consciousness/Mental Status: Can Participate in Eval, Alert and Oriented Pain Control: Adequate, Prn Tx Ordered Nausea/Vomiting Control: Adequate, Prn Tx Ordered Complications Possibly Related to Anesthesia: None Noted
[2016-08-26] MEDS ORDERED: KETOROLAC 30 MG/1 ML SDV ONE (13:49)
[2016-08-26] MEDS ORDERED: MAGNESIUM HYDROXIDE 30 ML UDCUP PO PRN (13:50)
[2016-08-26] MEDS ORDERED: POLYETHYLENE GLYCOL 3350 17 GM PKT PO PRN (13:50)
[2016-08-26] MEDS ORDERED: DOCUSATE SODIUM 100 MG CAP PO PRN (13:50)
[2016-08-26] MEDS ORDERED: LACTULOSE 20 GM/30 ML UDCUP PO PRN (13:50)
[2016-08-26] MEDS ORDERED: SIMETHICONE 80 MG TAB CHEW PO PRN (13:50)
[2016-08-26] MEDS ORDERED: PROMETHAZINE HCL 25 MG/ML INJ IVP PRN (13:50)
[2016-08-26] MEDS ORDERED: BISACODYL 10 MG SUPP PR PRN (13:50)
[2016-08-26] MEDS ORDERED: CALCIUM GLUC 10% 1 GM/10 ML VIAL IVP PRN (13:53)
[2016-08-26] MEDS ORDERED: Mag Sulf 500 ML IV SCH (14:00)
--- NOTE | 2016-08-26 14:07 | OBDEL ---
Info Type: Primary GBS+: No Indications for Delivery: Preeclampsia Severe, Multiple Gestation Di-Di Twins ( Malpresentation - Transverse, Transverse lie via bedside u/s) Operative Report - Delivery Pre-op Diagnoses: Severe preeclampsia; Di-Di TIUP with malpresentation Post-op Diagnoses: Severe preeclampsia; Di-Di TIUP with malpresentation Nulliparous Prior to Delivery: Yes Presentation at Delivery: Breech (Baby B - Transverse to cephalic) Procedure: Low Transverse Surgeon: Mallory Gordon Occupational Safety Specialist: Tennille Fuller Anesthesiologist: Curtis Sommers [employer] SUPERVISOR: Cecy Ferguson L&D Analgesia/Anesthesia Type: Spinal Complications: None Findings: Grossly normal appearing uterus, tubes and ovaries. Viable male infant weighing 2060 gm with 8 and 9 apgars; another viable male infant weighing 1241 gms with 8 and 9 apgars. Placentas intact each with 3-vc, sent to pathology. Specimen(s)/Path: Placenta IV Fluid (ml): 2,500 EBL: 800cc UO-300cc clear urine at the end of procedure Data Twin A Delivery Date: 08/26/16 Delivery Time: 12:40 MCKENZIE: 10/08/16 Gestational Age: 33 week(s) and 6 day(s) Sex of : Male (breech) Aubrey Weight (gm): 2060 g Score (1 Min): 8 Score (5 Min): 9 Twin B Delivery Date: 08/26/16 Delivery Time: 12:41 MCKENZIE: 10/08/16 Gestational Age: 33 week(s) and 6 day(s) Sex of : Male (Transverse to cephalic) Score (1 Min): 8 Score (5 Min): 9 ICD10 Worksheet Patient Problems: Problems Problem Status Onset delivery, delivered, current hospitalization Acute malpresentation Acute Pre-eclampsia Acute Twin in third trimester Acute - ICD10 Problem Qualifiers (1) Pre-eclampsia Qualifiers: Trimester: T (2) malpresentation Qualifiers: malpresentation type: F Fetus number: F (3) delivery, delivered, current hospitalization
[2016-08-26] MEDS: KETOROLAC 30 MG/1 ML SDV IVP SCH ×2 (14:20→20:59)
[2016-08-26] MEDS: MAGNESIUM 500 MG PO SCH ×3 (15:57→21:08)
[2016-08-26] MEDS: DOCUSATE SODIUM 100 MG CAP PO SCH ×2 (19:12→22:13)
[2016-08-26] MEDS: FERROUS SULFATE 325 MG TAB PO SCH (19:12)
[2016-08-26] MEDS: PRENATAL VIT 1 EACH TAB PO SCH (21:02)
[2016-08-26] MEDS: SENNOSIDES/DOCUSATE SODIUM TAB PO SCH (21:02)
[2016-08-26] MEDS: IRON POLYSAC/IRON HEME 28 MG TAB PO SCH (21:03)
[2016-08-27] MEDS: KETOROLAC 30 MG/1 ML SDV IVP SCH ×2 (03:23→09:31)
[2016-08-27 04:44] LABS: % IMMATURE GRANULYOCYTES 0.6 % (0.0-1.1); ABSOLUTE IMMATURE GRANULOCYTES 0.08 10^3/uL (0.00-0.10); ADD DIFF? NO; ADD MORPH? NO; ADD SCAN? NO; ATYPICAL LYMPHOCYTE FLAG 10 (0-99); FRAGMENT RBC FLAG 0 (0-99); HEMATOCRIT 38.1 % (38.0-47.0); HEMOGLOBIN 13.5 g/dL (12.6-16.3); LEFT SHIFT FLG 0 (0-99); LIPEMIA HEMOLYSIS FLAG 90 (0-99); MEAN CELL HEMOGLOBIN 35.2 pg (27.9-34.1); MEAN CELL HEMOGLOBIN CONCENTR. 35.4 g/dL (32.4-36.7); MEAN CELL VOLUME 99.5 fL (81.5-99.8); MEAN PLATELET VOLUME 11.1 fL (8.7-11.7); PLATELET CLUMPS FLAG 0 (0-99); PLATELET COUNT 137 10^3/uL (150-400); RED BLOOD CELL COUNT 3.83 10^6/uL (4.18-5.33); RED CELL DISTRIBUTION WIDTH 12.8 % (11.5-15.2)
[2016-08-27] MEDS: LEVOTHYROXINE 50 MCG TAB PO SCH (04:45)
[2016-08-27 05:01] LABS: ALANINE AMINOTRANSFERASE 217 IU/L (9-52); ASPARTATE AMINOTRANSFERASE 104 IU/L (14-46); CREATININE 0.8 mg/dL (0.6-1.0); GLOMERULAR FILTRATION RATE > 60; LACTATE DEHYDROGENASE 774 IU/L (313-618); URIC ACID 3.9 mg/dL (2.5-6.8)
--- NOTE | 2016-08-27 09:04 | GOP ---
[f rep st] OPERATIVE REPORT DATE OF OPERATION: 08/26/2016 SURGEON: Mallory Gordon DO LICENSED AND CERTIFIED MIDWIFE: Dr. Tennille Fuller. ANESTHESIA: Spinal. ANESTHESIOLOGIST: Dr. Mati Sommers. PREOPERATIVE DIAGNOSIS: 1. Intrauterine at 33 and 6/7 weeks. 2. Dichorionic diamniotic twin intrauterine , malpresentation. Transverse-transverse via bedside ultrasound. 3. Severe preeclampsia. POSTOPERATIVE DIAGNOSIS: 1. Intrauterine at 33 and 6/7 weeks. 2. Dichorionic diamniotic twin intrauterine , malpresentation. Transverse-transverse via bedside ultrasound. 3. Severe preeclampsia. PROCEDURE PERFORMED: Primary section. FINDINGS: Grossly normal-appearing uterus, tubes, and ovaries bilaterally were noted. Baby A is a male , viable in breech presentation. 's were 8 and 9. Weighing 2060 g. Baby B is a viable male infant, transverse moved to cephalic born with 8 and 9 Apgars, weighing 1762 g. Placenta intact x2 delivered spontaneously. Three-vessel cord sent to pathology. ESTIMATED BLOOD LOSS: 800 cc. INDICATIONS: The patient is a 41-year-old, 1, para 0, with di-di twin intrauterine at 33 and 6/7 weeks who developed severe preeclampsia. On admission, patient had mildly elevated blood pressure of 140/90's. PIH labs were done and mildly elevated LFTs were noted. A 24 hour urine protein was started that revealed 900 mg protein suggestive of severe preeclampsia. Liver enzymes continued to elevate to twice the normal range. Patient remained asymptomatic. The patient presented about a week and half ago with vaginal bleeding with suspected abruption at that time. Patient was given steroids, betamethasone x2. It was noted at that time on ultrasound, that Baby B was growth restricted at 10th percentile. Consultation was done by [facility] who recommended that we proceed with a primary for the severe preeclampsia at 33 6/7 weeks while she remained hospitalized. Discussed risks, benefits, alternatives with the patient including but not limited to, bleeding, infection, damage to surrounding organs. The patient understands all risks at this time and wants to proceed with surgery. Informed consents were obtained. DESCRIPTION OF PROCEDURE: Patient was taken to the operating room where spinal anesthesia was administered without difficulty. Patient was prepped and draped usual sterile fashion in dorsal supine position with leftward tilt. A Pfannenstiel skin incision was made with the scalpel and carried through the underlying layer of fascia using Bovie. Fascia was incised midline and extended laterally using Cox scissors. Lindy clamps were used to elevate the superior aspect of the fascial incision, elevated the underlying rectus muscle dissected off bluntly and using Cox scissors. Attention was then turned to inferior aspect of the fascial incision which in a similar fashion was grasped, Lindy clamps, elevated, underlying rectus muscles dissected off bluntly using the Bovie. Rectus muscles were then dissected in the midline. Peritoneum was identified, entered bluntly. Incision was extended superiorly and inferiorly with good visualization of bladder. Bladder blade was inserted. The vesicouterine peritoneum was identified, entered sharply using Metzenbaum scissors. Incision was then extended laterally and the bladder flap was created digitally. Bladder blade was reinserted. Lower uterine segment was incised in transverse fashion using scalpel and extended anteriorly and posteriorly with manual traction. Baby A amniotic sac was ruptured and clear fluid was noted. The infant was delivered in breech position. The cord was clamped x2 and cut, and the infant was handed off to the awaiting nursery nurse. At this time we felt for the position of baby B. Baby B was noted to be transverse, and was moved to cephalic presentation. Amniotic sac was ruptured , and again clear fluid was noted. Baby B was delivered in cephalic presentation. The cord was clamped x2 and cut, and baby handed to the awaiting nursery nurse. Cord blood was obtained x2. The placentas were then delivered intact spontaneously with a three-vessel cords and sent to pathology. The uterus was then exteriorized and cleared of all clots and debris. Uterine incision was repaired in 2 layers using 0 Vicryl. Hemostasis was visualized. The uterus was then returned to the abdomen. All gutters were cleaned and any blood or blood clots were removed. The uterine incision was reexamined, and noted to be hemostatic. The rectus muscles were then reapproximated in the midline using 3-0 Vicryl. The fascia was then closed with 0 Vicryl suture. Subcutaneous layer was closed with 3-0 Vicryl and hemostasis was noted. The skin was then closed with 4-0 Vicryl on a Roderick needle. Sponge, lap, and instrument counts were correct x2. The patient tolerated the procedure. No complications. The patient was stable at the completion the procedure, and was transferred to recovery room in stable condition. PATHOLOGY: Placentas. IV FLUIDS: 2500 cc LR. URINE OUTPUT: 300 cc of clear urine at the end procedure. COMPLICATIONS: None. /[id number]/MODL MTDD
[2016-08-27] MEDS: IRON POLYSAC/IRON HEME 28 MG TAB PO SCH ×2 (09:30→23:54)
[2016-08-27] MEDS: SENNOSIDES/DOCUSATE SODIUM TAB PO SCH ×2 (09:30→20:36)
[2016-08-27] MEDS: ENOXAPARIN 40 MG/0.4 ML SYR SC SCH (09:31)
[2016-08-27] MEDS: FERROUS SULFATE 325 MG TAB PO SCH (11:41)
[2016-08-27] MEDS: DOCUSATE SODIUM 100 MG CAP PO SCH ×2 (11:41→23:48)
[2016-08-27 12:55] LABS: % IMMATURE GRANULYOCYTES 0.4 % (0.0-1.1); ABSOLUTE IMMATURE GRANULOCYTES 0.04 10^3/uL (0.00-0.10); ADD DIFF? NO; ADD MORPH? NO; ADD SCAN? NO; ATYPICAL LYMPHOCYTE FLAG 0 (0-99); FRAGMENT RBC FLAG 0 (0-99); HEMATOCRIT 35.6 % (38.0-47.0); HEMOGLOBIN 12.9 g/dL (12.6-16.3); LEFT SHIFT FLG 0 (0-99); LIPEMIA HEMOLYSIS FLAG 90 (0-99); MEAN CELL HEMOGLOBIN 35.3 pg (27.9-34.1); MEAN CELL HEMOGLOBIN CONCENTR. 36.2 g/dL (32.4-36.7); MEAN CELL VOLUME 97.5 fL (81.5-99.8); MEAN PLATELET VOLUME 10.9 fL (8.7-11.7); PLATELET CLUMPS FLAG 0 (0-99); PLATELET COUNT 133 10^3/uL (150-400); RED BLOOD CELL COUNT 3.65 10^6/uL (4.18-5.33); RED CELL DISTRIBUTION WIDTH 12.9 % (11.5-15.2)
[2016-08-27 13:06] LABS: ALANINE AMINOTRANSFERASE 199 IU/L (9-52); ALBUMIN 3.2 g/dL (3.5-5.0); ALKALINE PHOSPHATASE 136 IU/L (38-126); ANION GAP 9 mEq/L (8-16); ASPARTATE AMINOTRANSFERASE 82 IU/L (14-46); BILIRUBIN,TOTAL 0.8 mg/dL (0.1-1.4); BILIRUBIN-CONJUGATED 0.3 mg/dL (0.0-0.5); BILIRUBIN-UNCONJUGATED 0.5 mg/dL (0.0-1.1); CARBON DIOXIDE 22 mEq/l (22-31); CHLORIDE 102 mEq/L (97-110); CREATININE 0.8 mg/dL (0.6-1.0); GLOMERULAR FILTRATION RATE > 60; GLUCOSE 113 mg/dL (70-100); LACTATE DEHYDROGENASE 728 IU/L (313-618); POTASSIUM 3.9 mEq/L (3.5-5.2); SODIUM 133 mEq/L (134-144); TOTAL PROTEIN 5.8 g/dL (6.3-8.2); URIC ACID 4.4 mg/dL (2.5-6.8)
--- NOTE | 2016-08-27 14:26 | OBPP ---
Progress Note Assessment/Plan: Assessment: 41 y/o POD #1 s/p LTCS secondary to severe pre-eclampsia and atypical HELLP @ 336/7 weeks. Plan: Second set of PIH labs are trending toward normal. Her BP are normal and she is asymptomatic. We will hold on MgSo4 for now, and continue to observe. Repeat set in am. Po pain meds, support. 08/23/16 09:45 08/27/16 14:26 Subjective: Pt is feeling well today. She has min incisional pain with getting up. She is ambulating, voiding without difficulty and has min lochia. She is working on breast feeding and pumping and babies are doing well in the NICU, stable on room air. Objective: 08/27/16 12:45 08/27/16 12:45 Patient ABO/Rh A NEGATIVE 08/25/16 18:20 Uric Acid 4.4 mg/dL (2.5-6.8) 08/27/16 12:45 Total Bilirubin 0.8 mg/dL (0.1-1.4) 08/27/16 12:45 Conjugated Bilirubin 0.3 mg/dL (0.0-0.5) 08/27/16 12:45 Unconjugated Bilirubin 0.5 mg/dL (0.0-1.1) 08/27/16 12:45 AST 82 IU/L (14-46) H 08/27/16 12:45 ALT 199 IU/L (9-52) H 08/27/16 12:45 Lactate Dehydrogenase 728 IU/L (313-618) H 08/27/16 12:45 Temp Pulse Resp BP Pulse Ox 36.4 C 59 L 16 95/62 L 99 08/27/16 09:00 08/27/16 09:00 08/27/16 09:00 08/27/16 09:00 08/27/16 09:00 Uterine Position/Fundal Height: Umbilicus -2 Uterine Tone: Firm Physical Exam - Physical Exam General Appearance: WD/WN, alert, no apparent distress Neck: non-tender, full range of motion, supple Respiratory: chest non-tender, lungs clear, normal breath sounds Cardiac/Chest: regular rate, rhythm Abdomen: normal bowel sounds, incision (c/d/i) Extremities: swelling (no), Juliana's sign (neg)
[2016-08-27] MEDS: IBUPROFEN 600 MG TAB PO PRN ×2 (15:38→21:29)
[2016-08-27] MEDS: HYDROCODONE/APAP 5/325 TAB PO PRN ×2 (17:02→21:30)
[2016-08-27] MEDS: MAGNESIUM 500 MG PO SCH ×2 (17:27→23:52)
[2016-08-28] MEDS: IBUPROFEN 600 MG TAB PO PRN ×4 (03:41→21:40)
[2016-08-28] MEDS: PRENATAL VIT 1 EACH TAB PO SCH ×2 (03:41→21:39)
[2016-08-28] MEDS: LEVOTHYROXINE 50 MCG TAB PO SCH (05:00)
[2016-08-28] MEDS: FERROUS SULFATE 325 MG TAB PO SCH (09:38)
[2016-08-28] MEDS: SENNOSIDES/DOCUSATE SODIUM TAB PO SCH ×2 (09:38→21:38)
[2016-08-28] MEDS: HYDROCODONE/APAP 5/325 TAB PO PRN ×4 (09:44→21:39)
[2016-08-28] MEDS: ENOXAPARIN 40 MG/0.4 ML SYR SC SCH (09:48)
[2016-08-28] MEDS: DOCUSATE SODIUM 100 MG CAP PO SCH ×2 (10:47→22:19)
[2016-08-28] MEDS: IRON POLYSAC/IRON HEME 28 MG TAB PO SCH (10:48)
[2016-08-28] MEDS: MAGNESIUM 500 MG PO SCH ×2 (10:49→22:19)
--- NOTE | 2016-08-28 12:17 | OBPP ---
Progress Note Assessment/Plan: Assessment: 1) s/p 1LTCS secondary to severe preeclampsia and twins, malpresentation POD # 2 - pt is stable 2) Anemia - pt is asymptomatic 3) s/p severe preeclampsia, elev LFTs - trending down; BPs normal; asymptomatic 4) HSV I, oral Plan: Continue routine pp care Encourage ambulation Acyclovir ordered and precautions given Recommend abd binder and K pad prn Plan for d/c in 48 hrs 08/28/16 12:18 Subjective: Pt seen and examined. Doing well, some soreness. But overall pain is well controlled. She is OOB, bin regular diet, voiding without difficulty and passing flatus. No BM yet. Denies any f/c/n/v/CP or SOB. No headaches, visual changes or RUQ pain. Moderate lochia. Pumping. Twin boys are in NICU doing well. Objective: 08/27/16 12:45 08/27/16 12:45 Patient ABO/Rh A NEGATIVE 08/25/16 18:20 Uric Acid 4.4 mg/dL (2.5-6.8) 08/27/16 12:45 Total Bilirubin 0.8 mg/dL (0.1-1.4) 08/27/16 12:45 Conjugated Bilirubin 0.3 mg/dL (0.0-0.5) 08/27/16 12:45 Unconjugated Bilirubin 0.5 mg/dL (0.0-1.1) 08/27/16 12:45 AST 82 IU/L (14-46) H 08/27/16 12:45 ALT 199 IU/L (9-52) H 08/27/16 12:45 Lactate Dehydrogenase 728 IU/L (313-618) H 08/27/16 12:45 Temp Pulse Resp BP Pulse Ox 36.3 C 67 18 126/79 H 99 08/28/16 09:00 08/28/16 09:00 08/28/16 09:00 08/28/16 09:00 08/28/16 09:00 Uterine Position/Fundal Height: Umbilicus -2 Uterine Tone: Firm Physical Exam - Physical Exam General Appearance: WD/WN, alert, no apparent distress Respiratory: lungs clear, normal breath sounds Cardiac/Chest: regular rate, rhythm Abdomen: normal bowel sounds, non-tender, soft, flatus (+), incision (C/D/I, well approximated; some erythema noted L side superior to incision likely from bandage) Extremities: non-tender, normal inspection DTR- Lower Extremities: Plantar (R): 1+, Plantar (L): 1+ Skin: warm/dry, cyanosis Neuro/Psych: alert, normal mood/affect, oriented x 3
[2016-08-28 14:22] LABS: BILIRUBIN,TOTAL 0.6 mg/dL (0.1-1.4); BILIRUBIN-CONJUGATED 0.2 mg/dL (0.0-0.5); BILIRUBIN-UNCONJUGATED 0.4 mg/dL (0.0-1.1); TOTAL PROTEIN 5.8 g/dL (6.3-8.2)
[2016-08-28] MEDS: ACYCLOVIR 200 MG CAP PO SCH ×2 (15:34→21:38)
[2016-08-29] MEDS: HYDROCODONE/APAP 5/325 TAB PO PRN ×6 (02:00→22:30)
[2016-08-29] MEDS: IBUPROFEN 600 MG TAB PO PRN ×3 (06:20→18:20)
[2016-08-29] MEDS: LEVOTHYROXINE 50 MCG TAB PO SCH (06:20)
[2016-08-29 07:04] LABS: ALBUMIN 2.7 g/dL (3.5-5.0); BILIRUBIN,TOTAL 0.6 mg/dL (0.1-1.4); BILIRUBIN-CONJUGATED 0.2 mg/dL (0.0-0.5); BILIRUBIN-UNCONJUGATED 0.4 mg/dL (0.0-1.1); TOTAL PROTEIN 5.3 g/dL (6.3-8.2)
[2016-08-29] MEDS: DOCUSATE SODIUM 100 MG CAP PO SCH ×2 (09:42→20:57)
[2016-08-29] MEDS: ACYCLOVIR 200 MG CAP PO SCH ×3 (09:42→22:31)
[2016-08-29] MEDS: ENOXAPARIN 40 MG/0.4 ML SYR SC SCH (09:43)
[2016-08-29] MEDS: FERROUS SULFATE 325 MG TAB PO SCH (09:43)
[2016-08-29] MEDS: SENNOSIDES/DOCUSATE SODIUM TAB PO SCH ×2 (09:44→20:56)
[2016-08-29] MEDS: MAGNESIUM 500 MG PO SCH ×2 (09:44→21:40)
--- NOTE | 2016-08-29 19:39 | OBPP ---
Progress Note Assessment/Plan: Doing well today pumping pain well managed ff@u scant rubra lochia swelling in lower extremities 2+ bilaterally regular diet denies pih symptoms anemic incision well approximated vs wnl Plan:discharge to [facility] tomorrow discussed somewhat 08/22/16 23:05 08/23/16 06:31 08/29/16 19:40 08/29/16 19:48 Subjective: Doing well denies difficulties. Objective: 08/27/16 12:45 08/27/16 12:45 Patient ABO/Rh A NEGATIVE 08/25/16 18:20 Uric Acid 4.4 mg/dL (2.5-6.8) 08/27/16 12:45 Total Bilirubin 0.6 mg/dL (0.1-1.4) 08/29/16 06:30 Conjugated Bilirubin 0.2 mg/dL (0.0-0.5) 08/29/16 06:30 Unconjugated Bilirubin 0.4 mg/dL (0.0-1.1) 08/29/16 06:30 AST 52 IU/L (14-46) H 08/29/16 06:30 ALT 128 IU/L (9-52) H 08/29/16 06:30 Lactate Dehydrogenase 728 IU/L (313-618) H 08/27/16 12:45 Temp Pulse Resp BP Pulse Ox 36.9 C 62 18 122/66 H 98 08/29/16 09:37 08/29/16 09:37 08/29/16 09:37 08/29/16 09:37 08/29/16 09:37 Uterine Position/Fundal Height: At Umbilicus Physical Exam - Physical Exam General Appearance: WD/WN, alert, no apparent distress Respiratory: chest non-tender, lungs clear, normal breath sounds Cardiac/Chest: regular rate, rhythm Abdomen: normal bowel sounds Extremities: normal range of motion, non-tender, normal inspection, swelling, Juliana's sign (negative bilaterally) Peripheral Pulses: 1+: carotid (R), carotid (L) (no clonus) Skin: normal color, warm/dry Neuro/Psych: no motor/sensory deficits, alert, normal mood/affect, oriented x 3
[2016-08-29] MEDS: PRENATAL VIT 1 EACH TAB PO SCH (20:56)
[2016-08-30] MEDS: IBUPROFEN 600 MG TAB PO PRN ×3 (00:39→12:32)
[2016-08-30] MEDS: HYDROCODONE/APAP 5/325 TAB PO PRN ×4 (02:33→15:57)
[2016-08-30] MEDS: LEVOTHYROXINE 50 MCG TAB PO SCH (04:50)
[2016-08-30] MEDS: ENOXAPARIN 40 MG/0.4 ML SYR SC SCH (10:11)
[2016-08-30] MEDS: ACYCLOVIR 200 MG CAP PO SCH (10:11)
[2016-08-30] MEDS: FERROUS SULFATE 325 MG TAB PO SCH (10:11)
--- NOTE | 2016-08-30 12:42 | OBPP ---
Progress Note Assessment/Plan: Assessment: POD 4 s/p primary C/S for severe preeclampsia, twins improved LFTs, mild anemia Plan: D/C to boarder status, cont Independence prn and ibu. RTC for B/P check later this week 08/24/16 13:05 08/30/16 12:38 Subjective: Pt doing well. No WHITTINGTON or n/v or visual changes. producing colostrum. pain is well controlled with 1 Independence q 4 hrs and ibu. Had BM yesterday and is urinating fine. Babies doing well on RA. Disc boarder status. Objective: 08/27/16 12:45 08/27/16 12:45 Patient ABO/Rh A NEGATIVE 08/25/16 18:20 Uric Acid 4.4 mg/dL (2.5-6.8) 08/27/16 12:45 Total Bilirubin 0.6 mg/dL (0.1-1.4) 08/29/16 06:30 Conjugated Bilirubin 0.2 mg/dL (0.0-0.5) 08/29/16 06:30 Unconjugated Bilirubin 0.4 mg/dL (0.0-1.1) 08/29/16 06:30 AST 52 IU/L (14-46) H 08/29/16 06:30 ALT 128 IU/L (9-52) H 08/29/16 06:30 Lactate Dehydrogenase 728 IU/L (313-618) H 08/27/16 12:45 Temp Pulse Resp BP Pulse Ox 36.7 C 75 16 132/82 H 96 08/29/16 20:00 08/29/16 20:00 08/29/16 20:00 08/29/16 20:00 08/29/16 20:00 Uterine Position/Fundal Height: Umbilicus -1 Uterine Tone: Firm Physical Exam - Physical Exam General Appearance: WD/WN, alert, no apparent distress Abdomen: non-tender, soft, other (FF at umb -1, lochia scant, incision CDI) Extremities: non-tender, pedal edema (3+) Skin: normal color, warm/dry Neuro/Psych: alert, normal mood/affect
--- NOTE | 2016-08-30 12:52 | OBGCSDC ---
General Delivery Information - General Info : 1 Para: 1 Delivery Physician/CNM: Mallory Gordon Blanket Folder: Tennille Fuller Labs: Patient ABO/Rh A NEGATIVE 08/25/16 18:20 Hct 35.6 % (38.0-47.0) L 08/27/16 12:45 Vaginal - Diagnosis Presentation at Delivery: Breech (Baby B - Transverse to cephalic) - Operations/Procedures L&D Analgesia/Anesthesia Type: Spinal - Delivery Number of Prior Sections: 0 Indications for Current Section: Other (Specify) (twins, , severe preeclampsia with elevated LFTs) Type: Primary Surgical Procedures: Scheduled, Low Transverse L&D Analgesia/Anesthesia Type: Spinal - Hospital Course Antepartum: AMA with high surveillance, Twins with serial growth patterns and borderline with B, on u/s trans/trans position. In house obs due to elevated LFTs with sl elevated 24 hr urine but o/w stable B/P Intrapartum: scheduled c/s with MFM recommendation due to elevated LFTs and proteinuria : doing well - b/P normal. +3 edema but o/s asymptomatic. pumping and producing colostrum Duncan Data Twin A Delivery Date: 08/26/16 Delivery Time: 12:40 MCKENZIE: 10/08/16 Gestational Age: 34 week(s) and 3 day(s) Sex of Infant: Male Duncan Weight (gm): 2060 kg Score (1 Min): 8 Score (5 Min): 9 Twin B Delivery Date: 08/26/16 Delivery Time: 12:41 MCKENZIE: 10/08/16 Gestational Age: 34 week(s) and 3 day(s) Sex of Infant: Male Duncan Weight (gm): 1762 kg Score (1 Min): 9 Score (5 Min): 9 Discharge Information - Discharge Information Discharge Medications: Hydrocodone, Ibuprofen, Vitamins, Other (Specify ) (acyclovir for cold sore) Condition: Good Instruction/Follow Up: Two Weeks (as well as BP check on Monday), Four Weeks, Six Weeks Discharge Physician/CNM: Sarah Mclean
[2016-08-30] MEDS: MAGNESIUM 500 MG PO SCH (15:49)
[2016-08-30 15:53] VITALS: BP 134/92; PULSE 65; RESP 18; TEMP 98.5; O2SAT 98
[2016-08-30] MEDS: DOCUSATE SODIUM 100 MG CAP PO SCH (16:50)
== END 2016-08-30 16:45 | disposition home or self-care (01) | DRG 765 ==
LOC: FLD 14:52 → UNDOADMIN 14:52 → OBSVTOIN 14:52 → INTOOBSV 14:52 → FLD 08-23 16:10 → FOB 08-26 18:00
PROVIDERS: ADMIT Obstetrics & Gynecology; ATTEND Obstetrics & Gynecology
PROC: 10D00Z1 Extraction of Products of Conception, Low, Open Approach (ICD-10-PCS; principal; 2016-08-26)
DX: O14.24 HELLP syndrome, complicating childbirth (principal); O30.043 Twin pregnancy, dichorionic/diamniotic, third trimester; O32.1XX1 Maternal care for breech presentation, fetus 1; O32.2XX2 Maternal care for transverse and oblique lie, fetus 2; O99.284 Endocrine, nutritional and metabolic diseases complicating childbirth; E03.9 Hypothyroidism, unspecified; O26.893 Other specified pregnancy related conditions, third trimester; Z3A.34 34 weeks gestation of pregnancy; Z37.2 Twins, both liveborn
CPT/HCPCS: G0463; J0690; J1100; J1650; J1885; J2274; J2370; J2405; J2550; J2590; J3010; J3105